=== PATIENT | female | born 1980 | race Hispanic/Latino ===

== ENCOUNTER 2021-11-24 13:40 | Inpatient (IN) | payer BC ==
[~2021-11-24] VITALS: Ht 152.4 cm; Wt 56.2 kg
[2021-11-24 15:22] LABS: CREATININE 1.8 mg/dL (0.5-1.5)
[2021-11-24 15:25] LABS: POTASSIUM 2.3 mmol/L (3.5-5.1)
[2021-11-24] MEDS ORDERED: DiphenhydrAMINE HCL 50 MG/ML VIAL IV PRN (15:30)
[2021-11-24] MEDS ORDERED: MAG/ALUM/SIMETH 30 ML UDCUP PO PRN (15:30)
[2021-11-24] MEDS ORDERED: NITROGLYCERIN 0.4 MG SL TAB SL PRN (15:30)
[2021-11-24] MEDS ORDERED: ACETAMINOPHEN 325 MG TAB PO PRN ×2 (15:30)
[2021-11-24] MEDS ORDERED: ONDANSETRON 4MG INJ IV PRN (15:30)
[2021-11-24] MEDS ORDERED: LACTULOSE 20 GM/30 ML UDCUP PO PRN (15:30)
[2021-11-24] MEDS ORDERED: DIPHENHYDRAMINE HCL 25 MG CAPSULE PO PRN (15:30)
[2021-11-24] MEDS ORDERED: GUAIFENESIN-DM 200/20 MG 10 ML PO PRN (15:30)
[2021-11-24 18:24] VITALS: BP 88/50
[2021-11-24 20:15] VITALS: BP 95/60
[2021-11-24] MEDS: FAMOTIDINE 20MG TAB PO SCH (20:58)
[2021-11-24] MEDS ORDERED: FAMOTIDINE 20MG VIAL IV SCH (21:00)
[2021-11-24] MEDS: HEPARIN 5,000 UNIT VIAL SQ SCH (21:04)
[2021-11-24] MEDS ORDERED: HYDROCODONE/ACETAMINOPHEN 5/325 MG TAB ONE (21:16)
[2021-11-24] MEDS ORDERED: LIDOCAINE HCL-MPF 1% 2ML VIAL IV PRN (21:30)
[2021-11-24] MEDS ORDERED: MORPHINE 2 MG SYG IVP PRN (21:30)
[2021-11-24] MEDS ORDERED: MAGNESIUM 2GM PREMIX 50ML 50 ML IV PRN (21:30)
[2021-11-24] MEDS ORDERED: GLUCAGON 1MG KIT 1 MG ML IM PRN (21:30)
[2021-11-24] MEDS ORDERED: POTASSIUM CHLORIDE 20MEQ/100ML 100 ML IV PRN (21:30)
[2021-11-24] MEDS ORDERED: DEXTROSE 50%-WATER 50 ML DISP.SYRIN IV PRN (21:30)
[2021-11-24] MEDS ORDERED: HYDROCODONE/ACETAMINOPHEN 5/325 MG TAB PO ONE (21:30)
[2021-11-24] MEDS ORDERED: NALOXONE HCL 0.4 MG/1 ML ML IVP PRN (21:30)
[2021-11-24] MEDS: KCL 20 MEQ ERTAB PO PRN (22:00)
[2021-11-24] MEDS: LACTATED RINGERS 1000ML 1,000 ML IV SCH (23:42)
[2021-11-24] MEDS: POTASSIUM CHLORIDE 10% ELIXIR 20 MEQ/15 ML UDCUP PO PRN (23:42)
[2021-11-24 23:51] VITALS: BP 105/58
[2021-11-25] MEDS: POTASSIUM CHLORIDE 10% ELIXIR 20 MEQ/15 ML UDCUP PO PRN ×2 (00:42→02:12)
[2021-11-25] MEDS: KCL 20 MEQ ERTAB PO PRN ×2 (00:42→02:12)
[2021-11-25 04:14] VITALS: BP 92/56
[2021-11-25 05:44] LABS: BASOPHILS % (AUTO) 0.3 % (0.0-5.0); EOSINOPHILS % (AUTO) 10.3 % (0.0-8.0); HEMATOCRIT 24.6 % (36-48); MEAN CORPUSCULAR HEMOGLOBIN 31.9 pg (27.0-33.0); MEAN CORPUSCULAR VOLUME 86.3 fL (79-99); MONOCYTES % (AUTO) 5.3 % (3.0-13.0); NEUTROPHILS % (AUTO) 72.8 % (40.0-77.0); PLATELET COUNT (AUTO) 538 K/uL (130-400); RED BLOOD CELL COUNT(AUTO) 2.85 MIL/uL (4.00-5.50); RED CELL DISTRIBUTION WIDTH 16.9 % (11.0-15.5); WHITE BLOOD COUNT (AUTO) 10.8 K/uL (4.8-10.8)
[2021-11-25 06:08] LABS: CREATININE 1.1 mg/dL (0.5-1.5); MAGNESIUM 1.9 mg/dL (1.80-2.40); PHOSPHORUS 2.7 mg/dL (2.5-4.9)
[2021-11-25 08:00] VITALS: BP 100/60
[2021-11-25] MEDS: LOPERAMIDE 1 MG/7.5 ML UDCUP PO SCH ×2 (09:39→21:09)
[2021-11-25] MEDS: CYANOCOBALAMIN (VITAMIN B-12) 1,000 MCG TABLET PO SCH (09:40)
[2021-11-25] MEDS: VITAMIN B COMPLEX 1 CAPSULE PO SCH (09:40)
[2021-11-25] MEDS: HYDROCODONE/ACETAMINOPHEN 5/325 MG TAB PO PRN ×2 (09:40→16:35)
[2021-11-25] MEDS: FOLIC ACID 1 MG TABLET PO SCH (09:40)
[2021-11-25] MEDS: HEPARIN 5,000 UNIT VIAL SQ SCH ×3 (09:41→21:09)
[2021-11-25] MEDS: LACTATED RINGERS 1000ML 1,000 ML IV SCH ×3 (09:42→21:13)
[2021-11-25 11:40] VITALS: BP 103/60
[2021-11-25] MEDS ORDERED: PARO10TA71 PO (12:17)
[2021-11-25] MEDS ORDERED: METR-172 PO (12:17)
[2021-11-25] MEDS ORDERED: CIPR-278 PO (12:17)
[2021-11-25] MEDS ORDERED: LOSA1TAB42 PO (12:17)
[2021-11-25 16:00] VITALS: BP 109/51
[2021-11-25 20:00] VITALS: BP 90/61
[2021-11-25] MEDS: FAMOTIDINE 20MG TAB PO SCH (20:55)
[2021-11-25] MEDS: HYDROCODONE/ACETAMINOPHEN 10/325 MG TAB PO PRN (21:44)
[2021-11-26] VITALS: BP 99/60
[2021-11-26 04:00] VITALS: BP 99/61
[2021-11-26 05:45] LABS: EOSINOPHILS % (AUTO) 10.8 % (0.0-8.0); HEMATOCRIT 23.2 % (36-48); LYMPHOCYTES % (AUTO) 20.9 % (21.0-51.0); MEAN CORPUSCULAR HEMOGLOBIN 31.4 pg (27.0-33.0); MEAN CORPUSCULAR HGB CONC 35.8 g/dL (32.0-36.0); MEAN CORPUSCULAR VOLUME 87.9 fL (79-99); MONOCYTES % (AUTO) 5.6 % (3.0-13.0); NEUTROPHILS % (AUTO) 60.8 % (40.0-77.0); PLATELET COUNT (AUTO) 464 K/uL (130-400); RED BLOOD CELL COUNT(AUTO) 2.64 MIL/uL (4.00-5.50); RED CELL DISTRIBUTION WIDTH 16.6 % (11.0-15.5); WHITE BLOOD COUNT (AUTO) 7.9 K/uL (4.8-10.8)
[2021-11-26 05:55] LABS: CREATININE 0.6 mg/dL (0.5-1.5); POTASSIUM 3.7 mmol/L (3.5-5.1)
[2021-11-26] MEDS: HYDROCODONE/ACETAMINOPHEN 10/325 MG TAB PO PRN (06:48)
[2021-11-26] MEDS ORDERED: DIPH1TAB PO ×2 (07:53→09:00)
[2021-11-26 08:00] VITALS: BP 100/63
[2021-11-26] MEDS: HEPARIN 5,000 UNIT VIAL SQ SCH (09:00)
[2021-11-26] MEDS: LOPERAMIDE 1 MG/7.5 ML UDCUP PO SCH (09:00)
[2021-11-26] MEDS: FOLIC ACID 1 MG TABLET PO SCH (10:32)
[2021-11-26] MEDS: CYANOCOBALAMIN (VITAMIN B-12) 1,000 MCG TABLET PO SCH (10:32)
[2021-11-26] MEDS: VITAMIN B COMPLEX 1 CAPSULE PO SCH (10:32)
== END 2021-11-26 11:45 | disposition home or self-care (01) | DRG 641 ==
LOC: EDH 13:40 → EDHIP 15:03 → 3AH 17:00
PROVIDERS: ADMIT Internal Medicine; ATTEND Internal Medicine
DX: E86.0 Dehydration (principal); E83.42 Hypomagnesemia; E87.1 Hypo-osmolality and hyponatremia; E87.6 Hypokalemia; F32.A Depression, unspecified; F41.9 Anxiety disorder, unspecified; I10 Essential (primary) hypertension; K21.9 Gastro-esophageal reflux disease without esophagitis; Z90.710 Acquired absence of both cervix and uterus; Z93.2 Ileostomy status; Z93.3 Colostomy status
CPT/HCPCS: 36415; 71045; 80048; 83735; 84100; 84132; 85025; 87040; 87088; 93005; 97039; 99291; G0378; J1644; J2405; J3475; J3480; J7120